=== PATIENT | female | born 1975 | race Hispanic/Latino ===

== ENCOUNTER 2018-05-10 10:39 | Emergency (ER) | payer BC ==
[~2018-05-10] VITALS: Ht 154.9 cm; Wt 82.1 kg
[2018-05-10] MEDS ORDERED: CYCLOBENZAPRINE HCL 10 MG TAB PO STA (11:18)
[2018-05-10] MEDS ORDERED: KETOROLAC TROMETHAMINE 30 MG/ML VIAL IV STA (11:18)
[2018-05-10 11:42] LABS: BASOPHILS # (AUTO) 0.1 (0.0-0.1); BASOPHILS % 1.3 % (0.0-1.0); EOSINOPHILS # (AUTO) 0.3 (0.0-0.4); EOSINOPHILS % 3.8 % (0.0-6.0); HEMATOCRIT 32.6 % (34.2-44.1); HEMOGLOBIN 10.5 g/dL (12.0-16.0); LYMPHOCYTES # (AUTO) 2.5 (1.0-3.2); LYMPHOCYTES % 32.3 % (18.0-39.1); MEAN CORPUSCULAR HEMOGLOBIN 24.1 pg (28-32); MEAN CORPUSCULAR HGB CONC 32.2 g/dL (31-35); MEAN CORPUSCULAR VOLUME 74.8 fL (81-99); MONOCYTES # (AUTO) 0.4 (0.2-0.8); NEUTROPHILS # (AUTO) 4.3 (2.1-6.9); NEUTROPHILS % 57.2 % (38.7-80.0); PLATELET COUNT 346 x10e3/uL (140-360); RED BLOOD COUNT 4.36 x10e6/uL (3.6-5.1); RED CELL DISTRIBUTION WIDTH 15.3 % (11.7-14.4)
--- NOTE | 2018-05-10 11:57 | Diagnostic Imaging Report ---
PROCEDURE:X-RAY CHEST, ONE VIEW COMPARISON:None. INDICATIONS:LEFT SIDE CHEST ARM PAIN TODAY FINDINGS: There are no consolidations, pleural effusions or pneumothorax. The cardiomediastinal silhouette and pulmonary vasculature are normal. There are no acute osseous abnormalities. CONCLUSION: No acute cardiopulmonary abnormality. Shalom Funez D.O. Dictated by: Shalom Funez D.O. on 05/10/2018 at 12:01 Electronically approved by: Shalom Funez D.O. on 05/10/2018 at 12:01
[2018-05-10 11:58] LABS: CLARITY,URINE CLEAR (CLEAR); COLOR,URINE YELLOW (YELLOW)
[2018-05-10 11:59] LABS: BILIRUBIN,URINE NEGATIVE (NEGATIVE); KETONES,URINE NEGATIVE (NEGATIVE); LEUKOCYTE ESTERASE ,URINE NEGATIVE (NEGATIVE); NITRITE,URINE NEGATIVE (NEGATIVE); PROTEIN,URINE DIPSTICK NEGATIVE (NEGATIVE); URINE UROBILINOGEN 0.2 mg/dL (0.2 - 1)
--- NOTE | 2018-05-10 12:00 | Diagnostic Imaging Report ---
PROCEDURE:C-SPINE COMPLETE COMPARISON:None. INDICATIONS:LEFT SIDE ARM NECK PAIN TODAY FINDINGS: The lateral view is visualized from the skull base to C6. The vertebral bodies are well-aligned. There are no fractures, lytic or blastic lesions. There is mild disc space narrowing at C5-C6. Calcification within the anterior ligament at C5-C6 and C6-C7 is noted. No foraminal encroachment. The C1/C2-odontoid interval is normal. The pre-vertebral soft tissues are normal. CONCLUSION: Disc space narrowing at C5-C6. Shalom Funez D.O. Dictated by: Shalom Funez D.O. on 05/10/2018 at 12:03 Electronically approved by: Shalom Funez D.O. on 05/10/2018 at 12:03
[2018-05-10 12:07] LABS: ALANINE AMINOTRANSFERASE 30 IU/L (0-55); ALBUMIN 3.6 g/dL (3.5-5.0); ALKALINE PHOSPHATASE 60 IU/L (40-150); ANION GAP 11.5 mmol/L (8-16); BACTERIA,URINE FEW /HPF; BLOOD UREA NITROGEN 11 mg/dL (7-26); BUN/CREATININE RATIO 17 (6-25); CALCIUM 8.8 mg/dL (8.4-10.2); CARBON DIOXIDE 23 mmol/L (22-29); CHLORIDE 108 mmol/L (98-107); CREATINE KINASE 61 IU/L (29-168); CREATININE, SERUM 0.66 mg/dL (0.57-1.11); EPITHELIAL CELLS,URINE FEW /LPF; EST GLOMERULAR FILTRATION RATE > 60 ML/MIN (60-); GLUCOSE 95 mg/dL (74-118); POTASSIUM 3.5 mmol/L (3.5-5.1); RBC,URINE 0-5 /HPF (0-5); SODIUM 139 mmol/L (136-145); WBC,URINE (MAN) 0-5 /HPF (0-5)
== END 2018-05-10 15:36 | disposition home or self-care (01) ==
LOC: ER 10:39
DX: R07.89 Other chest pain (principal); M94.0 Chondrocostal junction syndrome [Tietze]; M54.2 Cervicalgia; M54.12 Radiculopathy, cervical region
CPT/HCPCS: 36415; 71045; 72050; 80053; 81001; 82550; 82553; 84484; 85025; 93005; 99284; J1885